=== PATIENT | female | born 1990 | race Caucasian/White ===

== ENCOUNTER → 2017-09-11 11:53 | Outpatient (CLI) | payer SELFPAY ==
[2017-09-11 14:31] LABS: Group B Strep DNA By PCR Negative (Negative); Internal Control PASS; Probe Check PASS; Specimen Processing Control PASS
== END ==
PROVIDERS: Visit Provider Obstetrics & Gynecology
DX: Z36.85 Encounter for antenatal screening for Streptococcus B (principal)
CPT/HCPCS: 87081; 87653

== ENCOUNTER 2017-09-23 11:56 | Emergency (ER) | payer SELFPAY ==
[2017-09-23 11:57] VITALS: PULSE 82; RESP 16; TEMP 36.4; O2SAT 97; BMI 34.2
[2017-09-23 12:00] VITALS: BP 121/58
--- NOTE | 2017-09-23 12:27 | VDLE_ITS ---
Reason For Study: SWELLING RIGHT GSV is normal. CFV is compressible, spontaneous, phasic, competent and demonstrates normal augmentation. FV is compressible, spontaneous, phasic, competent and demonstrates normal augmentation. POP V is compressible, spontaneous, phasic, competent and demonstrates normal augmentation. T/P Trunk is compressible. PTV is compressible. RT PerV is compressible. Procedure Exam performed portable in ED. A preliminary report was called and/or faxed to ED. Interpretation Summary Deep veins of the right lower extremity are patent and compressible segmentally. There is no evidence of right lower extremity deep vein thrombosis. Valvular competence appears intact within the proximal deep venous system on the right . The right greater saphenous vein appears patent and compressible segmentally. Ordering Physician: Leonides Miguel Performed By: Kaylan Fry, ERVINCS, RVT
--- NOTE | 2017-09-23 14:21 | NURSING ---
[id number] PAGED BY PET COUNSELOR, NO ANSWER [phone] ANSWERED PET COUNSELOR, CALL SENT TO ER
--- NOTE | 2017-09-23 14:27 | NURSING ---
VASCULAR LAB HERE
--- NOTE | 2017-09-23 14:48 | ED.VISSUMM ---
- ER Visit Summary Date of Service: 09/23/17 Chief Complaint: Right calf pain History of Present Illness: The patient is a 26 F [] complaining of right calf pain. Concern for DVT. She is 38 weeks . She reports unilateral swelling to the lower extremity. Denies chest pain or shortness of breath. No other complaints at this time. Physical Examination: [] Cardiovascular exam is regular rate and rhythm. Lungs are clear to auscultation. Abdomen is gravid soft, nontender. Lower extremities show mild asymmetric edema to the right lower extremity. Neurovascularly intact distally. Test Results: [] Doppler ultrasound is negative of the right lower extremity. Emergency Department Course and Treatment: [] Patient underwent Doppler ultrasound which was negative. She was encouraged to follow-up with her primary care physician. Treatment Plan: [] Follow-up with [facility]. Disposition: [] Discharge, stable. Impression: [] Right calf swelling This note was generated with [employer] dictation software. It may contain incorrect words, spelling, and punctuation that were not noted in review of the chart prior to signing ED Disposition - Plan for ED Patient: Chief Complaint: Lower Extremity Injury Referrals: Care Physician,No Primary [Primary Care Provider] -
--- NOTE | 2017-09-23 14:51 | ED.DCSUM_ITS ---
- ER Visit Summary Date of Service: 09/23/17 Chief Complaint: Right calf pain History of Present Illness: The patient is a 26 F [] complaining of right calf pain. Concern for DVT. She is 38 weeks . She reports unilateral swelling to the lower extremity. Denies chest pain or shortness of breath. No other complaints at this time. Physical Examination: [] Cardiovascular exam is regular rate and rhythm. Lungs are clear to auscultation. Abdomen is gravid soft, nontender. Lower extremities show mild asymmetric edema to the right lower extremity. Neurovascularly intact distally. Test Results: [] Doppler ultrasound is negative of the right lower extremity. Emergency Department Course and Treatment: [] Patient underwent Doppler ultrasound which was negative. She was encouraged to follow-up with her primary care physician. Treatment Plan: [] Follow-up with RN POSTPARTUM. Disposition: [] Discharge, stable. Impression: [] Right calf swelling This note was generated with [employer] dictation software. It may contain incorrect words, spelling, and punctuation that were not noted in review of the chart prior to signing ED Disposition - Plan for ED Patient: Chief Complaint: Lower Extremity Injury Referrals: Care Physician,No Primary [Primary Care Provider] -
--- NOTE | 2017-09-23 14:51 | ED.DEP ---
ED Disposition - Plan for ED Patient: Disposition: Home or Assisted Living Chief Complaint: Lower Extremity Injury Instructions: ED Leg Swelling Unilateral Referrals: Care Physician,No Primary [Primary Care Provider] -
== END 2017-09-23 15:13 | disposition home or self-care (01) ==
PROVIDERS: Emergency Provider Emergency Medicine
DX: O26.893 Other specified pregnancy related conditions, third trimester (principal); M79.89 Other specified soft tissue disorders; M79.661 Pain in right lower leg; Z3A.38 38 weeks gestation of pregnancy
CPT/HCPCS: 93971; 99282

== ENCOUNTER 2017-10-05 12:02 | Inpatient (IN) | payer SELFPAY ==
[2017-10-05 11:56] LABS: ROM Internal Control Test YES-OK TO RESULT pt. (Internal QC)
[2017-10-05 11:58] LABS: ROM Patient Test POSITIVE (Negative)
[2017-10-05 12:11] VITALS: BMI 35.1
[2017-10-05] MEDS: Lactated Ringers 1,000 ML 50 ML IV (12:35)
[2017-10-05 12:45] LABS: Hematocrit 37.5 % (37-47); Hemoglobin 13.1 g/dl (12.0-15.0); Mean Corp Hgb Conc 34.9 g/gl (32-36); Mean Corpuscular Hgb 32.1 pg (27.0-32.0); Mean Corpuscular Volume 91.9 fL (81-99); Mean Platelet Vol. 9.9 fl (6.2-12.0); Platelet Count 285 K/mm3 (150-450); RBC Distribution Width CV 13.5 % (11.6-14.6); RBC Distribution Width SD 45.1 fl (35.1-43.9); Red Blood Count 4.08 M/mm3 (4.2-5.4); White Blood Count 13.8 K/mm3 (4.4-11.0)
[2017-10-05 12:46] LABS: Scan Indicated on CBC? Y/N NO
[2017-10-05] MEDS: Oxytocin 30 units/NS 500 ml 30 UNITS/500 ML IV.SOLN IV (13:37)
[2017-10-05] MEDS: Nalbuphine 10 MG/ML Ampul IV (17:29)
[2017-10-05] MEDS: Oxytocin 30 units/NS 500 ml 30 UNITS/500 ML IV.SOLN 334 UNITS IV (20:53)
[2017-10-05] MEDS: Methylergonovine 0.2 MG/ML Ampul IM (21:02)
--- NOTE | 2017-10-05 21:09 | PCM.OB.VAG ---
Vaginal Delivery Maternal Presentation: Active Labor Amniotic Membrane Rupture Type: Spontaneous Amniotic Fluid Description: Lightly stained meconium Final PALAK: 10/09/17 Final PALAK Source: US <20 weeks Gestational age: 39 Weeks and 3 Days doctor who attended delivery (if requested by OB): Joey Kan stained fluid Date of Procedure: 10/05/17 Pre-Operative Diagnosis: IUP Post-Operative Diagnosis: IUP Surgery/ Procedure Performed: Spontaneous Vaginal Delivery Type of Anesthesia: None Description of Procedure: Viable male with Apgars of 8/9 with a three-vessel cord and normal placenta. Cord around the neck ?1 tight. No episiotomy. Second-degree midline laceration repaired in layers with 3-0 Rapide suture. Sponge counts okay. Delivery physician: Itz Sharp MD. Presentation: Vertex Placental Delivery Description: Spontaneous Placenta Disposition: [facility] Cord Vessel Description: 3 Vessels Cord Gases drawn per routine: ABG Cord Entanglement: Around neck x 1, tight Estimated Blood Loss: 250cc A gender: Male (1 minute): 8 (5 minute): 9 Episiotomy Description: None Laceration: Midline, Perineal Extension/lac, 2nd degree Medications given after delivery: IV Pitocin, IM Methergin, - - rectal cytotec Complications: None
--- NOTE | 2017-10-05 21:14 | PCM.DCVAG ---
Discharge Diet: No Restrictions Discharge Activity: May Shower, May Take a Tub Bath May resume sexual activity in: 4-6 weeks Additional Activity Instructions:: Nothing in the vagina for 4-6 weeks. You may return to work/school in 6 weeks. Call your doctor if you observe: Fever of 101 or Higher, Inability to urinate, Inability to have a bowel movement, Using more than one pad per hour Additional Instructions: If you experience any of the following, contact your healthcare provider. Bleeding that soaks a pad every hour for 2 hours Unrelieved incision or abdominal pain Swelling, redness, discharge or bleeding from your incision or episiotomy site Your incision begins to separate Problems urinating (including inability to urinate or burning while urinating). Visual changes Severe headache Flu-like symptoms Pain or redness in one of both of your breasts Pain, warmth, tenderness or swelling in your legs, especially the calf area Frequent nausea and vomiting Symptoms of depression or anxiety If you experience any of the following, call 911 or go to the nearest Emergency Room. Chest pain Problems breathing Seizure activity Partial or complete paralysis of a body part, slurred speech, weakness or drooping of the face, or a sudden inability to walk or hold your balance Allergies/Adverse Reactions: Allergies No Known Allergies Allergy (Verified 09/23/17 12:32) Medications to take at Discharge Vits [Prenatabs FA] 1 tablet PO DAILY 01/27/15 Aspirin [Aspir-Low] 81 mg PO 10/05/17 Please Follow Up With: Yu Uribe MD - [phone] When: Call to make an appointment with your doctor in 6 weeks. Primary Care Physician: Care Physician,No Primary [Primary Care Provider] -
--- NOTE | 2017-10-05 21:15 | DCINST_ITS ---
Discharge Diet: No Restrictions Discharge Activity: May Shower, May Take a Tub Bath May resume sexual activity in: 4-6 weeks Additional Activity Instructions:: Nothing in the vagina for 4-6 weeks. You may return to work/school in 6 weeks. Call your doctor if you observe: Fever of 101 or Higher, Inability to urinate, Inability to have a bowel movement, Using more than one pad per hour Additional Instructions: If you experience any of the following, contact your healthcare provider. * Bleeding that soaks a pad every hour for 2 hours * Unrelieved incision or abdominal pain * Swelling, redness, discharge or bleeding from your incision or episiotomy site * Your incision begins to separate * Problems urinating (including inability to urinate or burning while urinating) . * Visual changes * Severe headache * Flu-like symptoms * Pain or redness in one of both of your breasts * Pain, warmth, tenderness or swelling in your legs, especially the calf area * Frequent nausea and vomiting * Symptoms of depression or anxiety If you experience any of the following, call 911 or go to the nearest Emergency Room. * Chest pain * Problems breathing * Seizure activity * Partial or complete paralysis of a body part, slurred speech, weakness or drooping of the face, or a sudden inability to walk or hold your balance Allergies/Adverse Reactions: Allergies No Known Allergies Allergy (Verified 09/23/17 12:32) Medications to take at Discharge Vits [Prenatabs FA] 1 tablet PO DAILY 01/27/15 Aspirin [Aspir-Low] 81 mg PO 10/05/17 Please Follow Up With: Yu Uribe MD - [phone] When: Call to make an appointment with your doctor in 6 weeks. Primary Care Physician: Care Physician,No Primary [Primary Care Provider] -
[2017-10-05] MEDS: miSOPROStol 200 MCG Tablet 400 MCG RECTAL (21:17)
[2017-10-05] MEDS: Oxytocin 30 units/NS 500 ml 30 UNITS/500 ML IV.SOLN 167 UNITS IV (21:23)
[2017-10-05] MEDS: 0.9% Saline Lock 10 ML Syringe IV (22:26)
[2017-10-05 23:00] VITALS: BP 115/84; PULSE 90; RESP 18; TEMP 36.9
[2017-10-06 02:02] VITALS: BP 123/81; PULSE 96; RESP 18; TEMP 37.3
[2017-10-06 06:00] VITALS: BP 129/89; PULSE 83; RESP 16; TEMP 36.8; O2SAT 98
[2017-10-06 08:00] VITALS: BP 108/67; PULSE 81; RESP 16; TEMP 36.5
[2017-10-06] MEDS: Senna/Docusate Sodium 1 Tablet PO (08:06)
--- NOTE | 2017-10-06 08:12 | PCM.PN.OB ---
Subjective: PPD#1 Doing well. Baby nursed a lot last night, but this am very sleepy and not nursing. Minimal pain. No concerned voiced. - Physical Exam General: Alert, Oriented x3, Cooperative, No apparent distress HEENT: Atraumatic Neck: Supple Abdomen: Soft - Fundus firm NT , inferior to umbilicus Psych/Mental Status: Normal Affect Vital Signs Temp Pulse Resp BP Pulse Ox 98.3 F 83 16 129/89 H 98 10/06/17 06:00 10/06/17 06:00 10/06/17 06:00 10/06/17 06:00 10/06/17 06:00 Oxygen Delivery Method Room Air Weight: 95.8 kg Body Mass Index (BMI) 35.1 Intake and Output for Last 24 Hours 10/04/17 10/05/17 10/06/17 23:59 23:59 23:59 Intake Total 1102 / 1102 1670 / 1670 Output Total 800 / 800 800 / 800 Balance 302 / 302 870 / 870 Laboratory Tests Past 24 Hrs 10/05/17 10/05/17 10/05/17 11:45 12:35 12:35 WBC 13.8 H RBC 4.08 L Hgb 13.1 Hct 37.5 MCV 91.9 MCH 32.1 H MCHC 34.9 RDW 13.5 RDW Differential 45.1 H Plt Count 285 MPV 9.9 Vag Amniotic Fld Detect POSITIVE H Blood Type O POSITIVE Antibody Screen NEGATIVE Medical Necessity - Tobacco Use Smoking Status: Never smoker Assessment/Plan PPD#1 Stable pp. Continue care.
[2017-10-06 12:51] VITALS: BP 122/82; PULSE 98; RESP 18; TEMP 36.5
[2017-10-06 16:00] VITALS: BP 123/81; PULSE 86; RESP 16; TEMP 36.5
[2017-10-06 20:00] VITALS: BP 125/77; PULSE 80; RESP 17; TEMP 36.3; O2SAT 98
[2017-10-07 02:30] VITALS: BP 123/75; PULSE 96; RESP 17; TEMP 36.5; O2SAT 98
[2017-10-07 08:00] VITALS: BP 117/79; PULSE 85; RESP 20; TEMP 36.3
[2017-10-07] MEDS: Senna/Docusate Sodium 1 Tablet PO (09:49)
--- NOTE | 2017-10-07 09:57 | PCM.PN.OB ---
Subjective: PPD#2 vaginal delivery after SROM Doing well. Nursing. Minimal pain and minimal bleeding. No concerns voiced and ready to go home today. Objective: Up walking around the room. - Physical Exam General: Alert, Oriented x3, Cooperative, No apparent distress HEENT: Atraumatic Neck: Supple Neurological: Cranial nerves II-XII grossly intact Psych/Mental Status: Normal Affect Vital Signs Temp Pulse Resp BP Pulse Ox 97.4 F L 85 20 H 117/79 98 10/07/17 08:00 10/07/17 08:00 10/07/17 08:00 10/07/17 08:00 10/07/17 02:30 Oxygen Delivery Method Room Air Weight: 95.8 kg Body Mass Index (BMI) 35.1 Intake and Output for Last 24 Hours 10/05/17 10/06/17 10/07/17 23:59 23:59 23:59 Intake Total 1102 / 1102 1670 / 1670 Output Total 800 / 800 800 / 800 Balance 302 / 302 870 / 870 Medical Necessity - Tobacco Use Smoking Status: Never smoker Assessment/Plan PPD#2 Stable pp. Dischg home today. RTO in 6 wk for pp check (call in to make that appt)
== END 2017-10-07 11:40 | disposition home or self-care (01) | DRG 775 ==
LOC: WPOUT 12:08
PROVIDERS: Admitting Provider Obstetrics & Gynecology; Visit Provider Obstetrics & Gynecology
DX: O77.0 Labor and delivery complicated by meconium in amniotic fluid (principal); O69.1XX0 Labor and delivery complicated by cord around neck, with compression, not applicable or unspecified; O70.1 Second degree perineal laceration during delivery; Z37.0 Single live birth; Z3A.39 39 weeks gestation of pregnancy
CPT/HCPCS: 59025; 59050; 84112; 85027; 86850; 86900; 99218; J7120; A4216; G0378

== ENCOUNTER → 2019-09-02 13:11 | Outpatient (CLI) | payer SELFPAY ==
[2019-09-02 13:43] LABS: Color, Urine Yellow (Yellow); Glucose, Dipstick Normal (Normal); Ketone-Dipstick Negative (Negative); Leukocyte Esterase-Dipstick 25 /ul (Negative); Nitrite-Dipstick Negative (Negative); Occult Blood-Urine Negative /ul (Negative); Protein-Dipstick Negative (Negative); Urine Bilirubin Dipstick Negative (Negative); Urine Clarity Sl. Cloudy (Clear); Urine Urobilinogen Normal (Normal)
[2019-09-02 13:45] LABS: Absolute Lymphocyte Count 1.41 X10^3/uL (0.83-4.51); Absolute Neutrophil Count 6.9 X10^3/uL (2.0-7.7); Basophil# 0.02 X10^3/uL; Basophil% 0.2 % (0-1); Eosinophil# 0.15 X10^3/uL; Eosinophils% 1.7 % (0-5); Hematocrit 39.4 % (37-47); Hemoglobin 13.6 g/dL (12.0-15.0); Lymphocyte # 1.41 X10^3/ul (4.0); Lymphocyte % 15.6 % (19-41); Mean Corp Hgb Conc 34.5 g/dL (32-36); Mean Corpuscular Hgb 31.1 pg (27.0-32.0); Mean Platelet Vol. 9.6 fl (6.2-12.0); Monocyte% 5.5 % (0-10); NRBC Flagged by Analyzer 0 % (0-5); Neutrophil # 6.93 X10^3/uL (2.7-7.7); Neutrophil % 76.4 % (47-70); Platelet Count 274 K/mm3 (150-450); RBC Distribution Width CV 13.2 % (11.6-14.6); RBC Distribution Width SD 43.2 fl (35.1-43.9); Red Blood Count 4.38 M/mm3 (4.2-5.4); White Blood Count 9.1 K/mm3 (4.4-11.0)
[2019-09-02 14:35] LABS: Thyroid Stim Hormone (TSH) 1.58 uIU/mL (0.358-3.74)
[2019-09-02 15:16] LABS: HIV - WCH Non-Reactive (Nonreactive); Hepatitis B Surface Antigen Non-Reactive (Nonreactive); Hepatitis C Antibody Non-Reactive (Nonreactive); Rubella IgG 170.6 IU/mL
[2019-09-02 15:26] LABS: Chlamydia Trachomatis by PCR Negative (Negative)
[2019-09-02 15:27] LABS: Neisserai gonorrhoeae by PCR Negative (Negative); Probe Check PASS; Sample Adequacy Control PASS; Specimen Processing Control PASS
[2019-09-05 03:26] LABS: Prenatal RPR NONREACTIVE (NONREACTIVE)
== END ==
PROVIDERS: Visit Provider Obstetrics & Gynecology
DX: Z11.3 Encounter for screening for infections with a predominantly sexual mode of transmission (principal)
CPT/HCPCS: 36415; 81002; 84443; 85025; 86703; 86762; 86803; 87340; 87491; 87591

== ENCOUNTER → 2019-11-25 | Outpatient (CLI) | payer SELFPAY ==
[2019-11-25 15:49] LABS: Color, Urine Yellow (Yellow); Glucose, Dipstick Normal (Normal); Ketone-Dipstick Negative (Negative); Leukocyte Esterase-Dipstick 25 /ul (Negative); Nitrite-Dipstick Negative (Negative); Occult Blood-Urine 250 /ul (Negative); Protein-Dipstick 30 mg/dl (Negative); Urine Bilirubin Dipstick Negative (Negative); Urine Clarity Sl. Cloudy (Clear); Urine Urobilinogen Normal (Normal)
== END | disposition home or self-care (01) ==
LOC: LABSPEC 15:34
PROVIDERS: Referring Provider Obstetrics & Gynecology; Visit Provider Obstetrics & Gynecology
DX: Z34.83 Encounter for supervision of other normal pregnancy, third trimester (principal); N39.0 Urinary tract infection, site not specified
CPT/HCPCS: 81002; 87077; 87086; 87088; 87186

== ENCOUNTER → 2019-12-18 09:48 | Outpatient (CLI) | payer SELFPAY ==
[2019-12-18 10:37] LABS: Hematocrit 35.3 % (37-47); Mean Corpuscular Hgb 31.1 pg (27.0-32.0); Mean Corpuscular Volume 91.5 fL (81-99); Mean Platelet Vol. 9.6 fl (6.2-12.0); Platelet Count 268 K/mm3 (150-450); RBC Distribution Width SD 42.6 fl (35.1-43.9); Red Blood Count 3.86 M/mm3 (4.2-5.4); White Blood Count 10.7 K/mm3 (4.4-11.0)
[2019-12-18 10:46] LABS: Glucose Challenge Gest 1H 50g 100 mg/dL (70-140)
== END ==
PROVIDERS: Visit Provider Obstetrics & Gynecology
DX: Z34.83 Encounter for supervision of other normal pregnancy, third trimester (principal)
CPT/HCPCS: 36415; 82950; 85027

== ENCOUNTER → 2020-02-13 | Outpatient (CLI) | payer SELFPAY | END | disposition home or self-care (01) | LOC: LABSPEC 09:33 | PROVIDERS: Visit Provider Obstetrics & Gynecology | DX: Z36.85 Encounter for antenatal screening for Streptococcus B (principal) | CPT/HCPCS: 87081 ==

== ENCOUNTER 2020-02-28 14:54 | Outpatient (CLI) | payer SELFPAY ==
[2020-02-28 15:20] VITALS: BMI 34.5
[2020-02-28 15:28] VITALS: BP 120/68; PULSE 109; TEMP 37.3; O2SAT 97
--- NOTE | 2020-02-28 21:37 | OB.TRI.NOTE ---
- Problem List (1) 38 weeks gestation of Status: Acute (2) Labor, false ([place]-Kwan) Status: Acute History of Present Illness Date of Service: 02/28/20 Was patient seen by the physician?: No Reason For Visit: R/O LABOR Date of Service: 02/28/20 Final PALAK: 03/09/20 Final PALAK Source: US <20 weeks Gestational age: 38 Weeks and 4 Days History of Present Illness: Reports having membrane sweeping done yesterday in the [facility] office. Has been rgazyna at home for the last few hours every 3-5 minutes. Allergies No Known Allergies Allergy (Verified 09/23/17 12:32) Review of Systems Constitutional: Denies: Chills, Fever, Weight Change HEENT: Denies: Head Aches, Sinus Congestion, Sinus Drainage Cardiovascular: Denies: Chest Pain, Palpitations Respiratory: Denies: Cough, Shortness of breath at rest, Sputum production Gastrointestinal: Denies: Abdominal Pain, Nausea, Vomiting Genitourinary: Denies: Dysuria Musculoskeletal: Denies: Joint Pain, Joint Tenderness Skin: Denies: Rash, Wounds Neurological: Denies: Numbness, Tingling, Focal weakness Psychiatric: Denies: Anxiety, Depression, Homicidal Ideations, Suicidal Ideations Hematologic/ Lymphatic: Denies: Easy Bruising, Easy Bleeding Physical Exam Vitals: Vital Signs Temp Pulse BP Pulse Ox 99.1 F 109 H 120/68 97 02/28/20 15:28 02/28/20 15:28 02/28/20 15:28 02/28/20 15:28 General: Alert, Oriented x3, No apparent distress HEENT: Atraumatic, Normocephalic. Negative for: Thyromegaly, Lymphadenopathy Cardiovascular: Regular rate, Regular Rhythm Lungs: Clear to auscultation Abdomen: Bowel Sounds Present, Gravid Neurological: Deep Tendon Reflexes 2+/4 and Symmetrical, Neuro grossly intact CRIMINAL RECORDS TECHNICIAN: Normal external genitalia. Negative for: Vulvar lesions Estimated gestational size: Appropriate for gestational size Presentation: Cephalic Cervix Dilation (cm): 1 Station: -3 Effacement (%): 25 NST - FHR Rate Baby A Baseline: 140 Variability:: Moderate Accelerations:: 15 x 15 Decelerations:: None NST Reactive:: Yes FHR Category:: Category I Uterine Activity:: irregular Q3-8m Impression/Plan A/P: here to rule out labor with UC for three hours prior to arrival On arrival SVE 08/10/-3 which remains unchanged over 2 hours NST Category I UC irregular Q3-7m Educated on after membrane sweeping irregular contractions/Bulmaro kwan may occur Not feeling UC as often nor as painful now and would like to discharge home Early labor vs false labor reviewed and to return when UC are consistent 5-1-1
== END 2020-02-28 17:26 | disposition home or self-care (01) ==
LOC: WPOUT 15:04 → WP 15:05
PROVIDERS: Referring Provider Obstetrics & Gynecology; Visit Provider Obstetrics & Gynecology
DX: O62.9 Abnormality of forces of labor, unspecified (principal); Z3A.38 38 weeks gestation of pregnancy
CPT/HCPCS: 59025; 59050; 99218; G0378

== ENCOUNTER 2020-03-02 18:35 | Outpatient (CLI) | payer SELFPAY ==
[2020-03-02 18:46] VITALS: BP 122/81; PULSE 76; TEMP 36.5; O2SAT 98
[2020-03-02 18:48] VITALS: BMI 34.5
--- NOTE | 2020-03-02 19:29 | OB.TRI.NOTE ---
- Problem List (1) 39 weeks gestation of Status: Acute History of Present Illness Date of Service: 03/02/20 Was patient seen by the physician?: Yes Reason For Visit: RULE OUT LABOR Date of Service: 03/02/20 Final PALAK: 03/09/20 Final PALAK Source: US <20 weeks Gestational age: 39 Weeks and 0 Days History of Present Illness: Called into OB office with complaints of decreased FM with irregular cramping. Allergies No Known Allergies Allergy (Verified 09/23/17 12:32) Review of Systems Constitutional: Denies: Chills, Fever, Weight Change HEENT: Denies: Head Aches, Sinus Congestion, Sinus Drainage Cardiovascular: Denies: Chest Pain, Palpitations Respiratory: Denies: Cough, Shortness of breath at rest, Sputum production Gastrointestinal: Denies: Abdominal Pain, Nausea, Vomiting Genitourinary: Denies: Dysuria Musculoskeletal: Denies: Joint Pain, Joint Tenderness Skin: Denies: Rash, Wounds Neurological: Denies: Numbness, Tingling, Focal weakness Psychiatric: Denies: Anxiety, Depression, Homicidal Ideations, Suicidal Ideations Hematologic/ Lymphatic: Denies: Easy Bruising, Easy Bleeding Physical Exam Vitals: Vital Signs Temp Pulse BP Pulse Ox 97.7 F L 76 122/81 H 98 03/02/20 18:46 03/02/20 18:46 03/02/20 18:46 03/02/20 18:46 General: Alert, Oriented x3, No apparent distress HEENT: Atraumatic, Normocephalic. 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 Negative for: Vulvar lesions Estimated gestational size: Appropriate for gestational size Presentation: Cephalic Cervix Dilation (cm): 2 Station: -2 Effacement (%): 70 NST - FHR Rate Baby A Baseline: 140 Variability:: Moderate Accelerations:: 15 x 15 Decelerations:: None NST Reactive:: Yes FHR Category:: Category I Uterine Activity:: 3-5 Impression/Plan A/P: at 39 weeks gestation here to rule out labor Reports +FM now NST Category I reactive UC 3-5m SVE 2/70/-2 Will recheck SVE in 2 hours
== END 2020-03-02 21:25 | disposition home or self-care (01) ==
LOC: WPOUT 18:39 → WP 18:40
PROVIDERS: Visit Provider Obstetrics & Gynecology
DX: O36.8130 Decreased fetal movements, third trimester, not applicable or unspecified (principal); Z3A.39 39 weeks gestation of pregnancy
CPT/HCPCS: 59025; 59050; 99218; G0378

== ENCOUNTER 2020-03-03 02:58 | Inpatient (IN) | payer SELFPAY ==
[2020-03-02 18:48] VITALS: BMI 34.5
[2020-03-03] VITALS (29 sets, daily range): BP systolic 117–140; BP diastolic 72–101; PULSE 59–200; RESP 16; TEMP 36.5–37.2; O2SAT 83–99; BMI 34.4
[2020-03-03] MEDS: Lactated Ringers 1,000 ML 50 ML IV (03:45)
[2020-03-03] MEDS: 0.9% Saline Lock 10 ML Syringe IV ×3 (04:02→13:59)
--- NOTE | 2020-03-03 04:03 | PCM.HP.OB ---
<DebArianna - Last Filed: 03/03/20 17:56> - Problem List (1) 39 weeks gestation of Status: Acute History Date of Admission: 03/03/20 Final PALAK: 03/09/20 Final PALAK Source: US <20 weeks Gestational age: 39 Weeks and 1 Days History of this : This is a 29 year-old, G [3], P [2], at 39 weeks gestational age. Allergies No Known Allergies Allergy (Verified 03/03/20 03:27) Home Medications: Home Medications Vits [Prenatabs FA] 1 tablet PO DAILY 01/27/15 Aspirin 81 mg PO DAILY 03/02/20 Oxycodone [Oxyir] 5 mg PO Q6H PRN PRN 7 Days #12 tab 03/04/20 Smoking Status: Never smoker Number of Fetus(es): 1 NST - FHR Rate Baby A Baseline: 130 Variability:: Moderate Accelerations:: 15 x 15 Decelerations:: None NST Reactive:: Yes FHR Category:: Category I Uterine Activity:: 2-5m History Past Pregnancies: Past Pregnancies January 28 GA 39wk [id number] vaginal with an epidural October 05 GA 39wk [id number] vaginal with local Labs: Mom's Labs & Results 03/03/20 03/03/20 03:45 03:45 WBC 8.5 RBC 4.25 Hgb 13.2 Hct 38.5 MCV 90.6 MCH 31.1 MCHC 34.3 RDW Std Deviation 43.5 RDW Coeff of Ca 13.2 Plt Count 302 MPV 10.5 Immature Gran % (Auto) 0.500 Neut % (Auto) 72.3 H Lymph % (Auto) 18.9 L [place] % (Auto) 6.8 Eos % (Auto) 1.1 Baso % (Auto) 0.4 Absolute Neuts (auto) 6.1 Absolute Lymphs (auto) 1.60 Nucleated RBC % 0 Blood Type O POSITIVE Antibody Screen NEGATIVE Course Did the patient receive Yes care? Labs Blood Type: O RH: POSITIVE RPR/VDRL/Syphilis Nonreactive Rubella status Immune HbSAg Negative Date Done: 09/02/19 Chlamydia Negative Gonorrhea Negative HIV/AIDS Non-Reactive Group B Strep: Negative Current Obstetrical History Gestational Diabetes No Incompetent Cervix No Infertility No IUGR No Macrosomia No Hypertension/Pre-eclampsia No Placenta Previa/Abruption No PTL/PROM No Uterine anomaly No Oligohydramnios No Polyhydramnios No Multiple gestation No Past Medical History Asthma No Diabetes No Hypertension No Heart disease No Mitral valve prolapse No Neurologic/Seizure disorder/ No Migraines Kidney disease No Liver disease No Varicosities No Clotting disorders/Hx of DVT No Thyroid Dysfunction No Other medical diseases No Psychiatric disorders No Major trauma No Abnormal PAP smear No Sleep apnea No Mammogram in the last 2 years No Social History Marital Status: Alleged father [place] Hx Smoking No Smoking Status Never smoker Expected Infant Delivery Method: Spontaneous Vaginal Number of Visits: 10 Review of Systems Constitutional: Denies: Chills, Fever, Weight Change HEENT: Denies: Head Aches, Sinus Congestion, Sinus Drainage Cardiovascular: Denies: Chest Pain, Palpitations Respiratory: Denies: Cough, Shortness of breath at rest, Sputum production Gastrointestinal: Denies: Abdominal Pain, Nausea, Vomiting Genitourinary: Denies: Dysuria Musculoskeletal: Denies: Joint Pain, Joint Tenderness Skin: Denies: Rash, Wounds Neurological: Denies: Numbness, Tingling, Focal weakness Psychiatric: Denies: Anxiety, Depression, Homicidal Ideations, Suicidal Ideations Hematologic/ Lymphatic: Denies: Easy Bruising, Easy Bleeding Physical Exam Vitals: Vital Signs Temp Pulse BP Pulse Ox 98.6 F 77 130/89 H 97 03/03/20 05:42 03/03/20 05:57 03/03/20 05:57 03/03/20 05:42 General: Alert, Oriented x3, No apparent distress HEENT: Atraumatic, Normocephalic. 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 Negative for: Vulvar lesions Estimated gestational size: Appropriate for gestational size Presentation: Cephalic Cervix Dilation (cm): 4 Station: -3 Effacement (%): 70 Assessment/Plan All Active Problems 38 weeks gestation of (Acute) Labor, false ([place]) (Acute) 39 weeks gestation of (Acute) A/P: This is a 29 year-old, G [3], P [2], at 39 weeks gestational age. SROM 2330, grossly ruptured with clear amniotic fluid SVE /-3 Admit in active labor Wishes to avoid epidural Expect <Gladys Matute - Last Filed: 03/05/20 15:28> History History of this : This is a 29 year-old, G [], P [], at 39 weeks gestational age. Allergies No Known Allergies Allergy (Verified 03/03/20 03:27) History Past Pregnancies: Past Pregnancies Delivery Date Name GA/ Weeks Outcome Route Wt Sex Labor Length Anesthesia Delivery Location Provider FOB Physical Exam Vitals: Vital Signs Temp Pulse Resp BP Pulse Ox 97.5 F L 83 16 123/84 H 97 03/04/20 12:52 03/04/20 12:52 03/04/20 12:52 03/04/20 12:52 03/03/20 15:52 Assessment/Plan 29 yo at 39/1w, PALAK 03/09/20, admitted with spontaneous rupture of membranes in labor. Planned expectant management at admission, augment with pitocin as needed.
[2020-03-03 04:18] LABS: Absolute Neutrophil Count 6.1 X10^3/uL (2.0-7.7); Basophil# 0.03 X10^3/uL; Basophil% 0.4 % (0-1); Eosinophil# 0.09 X10^3/uL; Eosinophils% 1.1 % (0-5); Hematocrit 38.5 % (37-47); Hemoglobin 13.2 g/dL (12.0-15.0); Lymphocyte % 18.9 % (19-41); Mean Corp Hgb Conc 34.3 g/dL (32-36); Mean Corpuscular Hgb 31.1 pg (27.0-32.0); Mean Corpuscular Volume 90.6 fL (81-99); Mean Platelet Vol. 10.5 fl (6.2-12.0); Monocyte# 0.58 X10^3/uL; Monocyte% 6.8 % (0-10); NRBC Flagged by Analyzer 0 % (0-5); Neutrophil # 6.13 X10^3/uL (2.7-7.7); Neutrophil % 72.3 % (47-70); Platelet Count 302 K/mm3 (150-450); RBC Distribution Width CV 13.2 % (11.6-14.6); RBC Distribution Width SD 43.5 fl (35.1-43.9); Red Blood Count 4.25 M/mm3 (4.2-5.4); White Blood Count 8.5 K/mm3 (4.4-11.0)
--- NOTE | 2020-03-03 07:04 | PN.OBGYN_ITS ---
Subjective: Feeling okay with pain 3/10 with contractions. Objective: VSS. FHR baseline 140, +accels, -decels, moderate variability, irregular UC. SVE /-2 - Physical Exam Vitals/I&O's: Vital Signs Temp Pulse BP Pulse Ox 98.6 F 77 130/89 H 97 03/03/20 05:42 03/03/20 05:57 03/03/20 05:57 03/03/20 05:42 Weight: 93.894 kg Body Mass Index (BMI) 34.4 Intake and Output for Last 24 Hours 03/01/20 03/02/20 03/03/20 23:59 23:59 23:59 Intake Total . Balance General: Alert, Oriented x3, Cooperative HEENT: Atraumatic, PERRLA, EOMI, Normocephalic Neck: Supple, No JVD, Negative Carotid Bruits Lungs: Clear to auscultation, Normal air movement Cardiovascular: Regular rate, No murmurs Abdomen: Bowel Sounds Present, Soft, Non Tender Extremities: No edema, Capillary Refill Less than 3 Seconds Skin: No rashes, No breakdown Musculoskeletal: No Tenderness to Palpation of Joints or Extremities Neurological: Cranial nerves II-XII grossly intact Psych/Mental Status: Normal Affect, Appropriate Laboratory Results 03/03/20 03:45: WBC 8.5, RBC 4.25, Hgb 13.2, Hct 38.5, MCV 90.6, MCH 31.1, MCHC 34.3, RDW Std Deviation 43.5, RDW Coeff of Ca 13.2, Plt Count 302, MPV 10.5, Immature Gran % (Auto) 0.500, Neut % (Auto) 72.3 H, Lymph % (Auto) 18.9 L, [place] % (Auto) 6.8, Eos % (Auto) 1.1, Baso % (Auto) 0.4, Absolute Neuts (auto) 6.1, Absolute Lymphs (auto) 1.60, Nucleated RBC % 0 03/03/20 03:45: Blood Type O POSITIVE, Antibody Screen NEGATIVE Current Medications Acetaminophen (Tylenol) 325 - 650 mg PO Q4H PRN PRN PRN Reason: Pain Score 1-3/10 Al Hydroxide/Mg Hydroxide (Mylanta Ii) 15 - 30 ml PO Q4H PRN PRN PRN Reason: INDIGESTION Citric Acid/Sodium Citrate (Bicitra) 30 ml PO X1 PRN PRN Reason: Section Fentanyl Citrate (Sublimaze (100mcg Ampule)) 25 - 50 mcg IV Q2H PRN PRN PRN Reason: Pain Score 4-10/10 Lactated Ringer's () 500 mls @ 999 mls/hr IV .Q31M PRN PRN Reason: Epidural Lactated Ringer's () 500 mls @ 999 mls/hr IV .Q31M PRN PRN Reason: Corrective Measures Lactated Ringer's () 1,000 mls @ 50 mls/hr IV .Q20H ALONSO Last Infusion: 03/03/20 04:02 Dose: 0 mls/hr Documented by: Ondansetron HCl (Zofran) 4 mg IV Q4H PRN PRN PRN Reason: NAUSEA Prochlorperazine Edisylate (Compazine Iv) 10 mg IV Q6H PRN PRN PRN Reason: NAUSEA Sodium Chloride () 10 - 40 ml IV X1 PRN PRN Reason: SALINE FLUSH Last Admin: 03/03/20 04:02 Dose: 10 ml Documented by: Medical Necessity - Tobacco Use Smoking Status: Never smoker Assessment/Plan All Active Problems 38 weeks gestation of (Acute) Labor, false ([place]-Kwan) (Acute) 39 weeks gestation of (Acute) A/P: SVE 4/70/-2 NST Category I Will start low dose Pitocin 2u/1H increase Expect
[2020-03-03] MEDS: Oxytocin 30 units/NS 500 ml 30 UNITS/500 ML IV.SOLN IV (08:35)
[2020-03-03] MEDS: fentaNYL 100 MCG/2 ML Ampul IV (10:25)
[2020-03-03] MEDS: Oxytocin 30 units/NS 500 ml 30 UNITS/500 ML IV.SOLN 334 UNITS IV (11:43)
--- NOTE | 2020-03-03 11:52 | DCINST_ITS ---
<Arianna Boyd - Last Filed: 03/03/20 11:52> Discharge Diet: No Restrictions Discharge Activity: Return to Normal Activity, May not drive while taking narcotic pain medications., May Shower May resume sexual activity in: 4-6 weeks Additional Activity Instructions:: Nothing in the vagina for 4-6 weeks. You may return to work/school in 6 weeks. Call your doctor if your incision/area has: Continuous Slow Oozing, Sudden Increased Bleeding, Increased Pain/ Swelling, Increased Redness, Foul Smelling Discharge Additional Instructions: If you experience any of the following, contact your healthcare provider. * Bleeding that soaks a pad every hour for 2 hours * Fever 100.4 or higher * Unrelieved incision or abdominal pain * Swelling, redness, discharge or bleeding from your incision or episiotomy site * Your incision begins to separate * Problems urinating (including inability to urinate or burning while urinating). * Visual changes * Severe headache * Flu-like symptoms * Pain or redness in one of both of your breasts * Pain, warmth, tenderness or swelling in your legs, especially the calf area * Frequent nausea and vomiting * Symptoms of depression or anxiety If you experience any of the following, call 911 or go to the nearest Emergency Room. * Chest pain * Problems breathing * Seizure activity * Partial or complete paralysis of a body part, slurred speech, weakness or drooping of the face, or a sudden inability to walk or hold your balance Allergies/Adverse Reactions: Allergies No Known Allergies Allergy (Verified 03/03/20 03:27) Medications to take at Discharge Vits [Prenatabs FA] 1 tablet PO DAILY 01/27/15 Aspirin 81 mg PO DAILY 03/02/20 Oxycodone [Oxyir] 5 mg PO Q6H PRN PRN 7 Days #12 tablet 03/04/20 The following prescriptions were given: Oxycodone [Oxyir] 5 mg PO Q6H PRN PRN 7 Days #12 tablet PRN Reason: Pain Score 6-10/10 Transmission Status: Received by [id number] Please Follow Up With: Arianna Boyd CNM When: Call to make an appointment with your CNM in 2 weeks for a telehealth appointment and a routine 6 week appointment. Primary Care Physician: Care Physician,No Primary [Primary Care Provider] - Test Results: Test results from this visit will be discussed in further detail at your follow- up appointment, if applicable. <Alfonso Matute - Last Filed: 03/04/20 08:14> Additional Instructions: If you experience any of the following, contact your healthcare provider. * Bleeding that soaks a pad every hour for 2 hours * Fever 100.4 or higher * Unrelieved incision or abdominal pain * Swelling, redness, discharge or bleeding from your incision or episiotomy site * Your incision begins to separate * Problems urinating (including inability to urinate or burning while urinating). * Visual changes * Severe headache * Flu-like symptoms * Pain or redness in one of both of your breasts * Pain, warmth, tenderness or swelling in your legs, especially the calf area * Frequent nausea and vomiting * Symptoms of depression or anxiety If you experience any of the following, call 911 or go to the nearest Emergency Room. * Chest pain * Problems breathing * Seizure activity * Partial or complete paralysis of a body part, slurred speech, weakness or drooping of the face, or a sudden inability to walk or hold your balance Test Results: Test results from this visit will be discussed in further detail at your follow- up appointment, if applicable.
--- NOTE | 2020-03-03 11:52 | PCM.OPRPT ---
Problem List (1) 39 weeks gestation of Status: Acute Vaginal Delivery Maternal Presentation: Active Labor Amniotic Membrane Rupture Type: Spontaneous at home Rupture of Membrane time: 2330 Amniotic Fluid Description: Clear Final PALAK: 03/09/20 Gestational age: 39 Weeks and 1 Days Pre-Operative Diagnosis: Labor Post-Operative Diagnosis: S/P Surgery/ Procedure Performed: Spontaneous Vaginal Delivery Type of Anesthesia: Local with 1% lidocaine Description of Procedure: Patient was FD at +3 station with spontaneous urge to push. She pushed three times to deliver head in OA to KAVITA, loose nuchal x1 reduced at perineum, followed by delivery of body. The female infant was placed on the maternal abdomen and further attended to by nursery personnel. The cord was doubly clamped and cut by FOB under CNM supervision at approximately 5 minutes of life. First degree perineal laceration repaired with a 3.0 vicryl under 1% Lidocaine local. With gentle traction the placenta delivered. IV Pitocin started per protocol. On inspection placenta appears to have a three vessel cord. Apgars 8/9. EBL 100. Sponge and needle counts correct x 2. Attending MD: Dr. Breonna Matute Presentation: Vertex, DALE Placental Delivery Description: Spontaneous Placenta Disposition: [facility] Cord Vessel Description: 3 Vessels Cord Entanglement: Around neck x 1, loose Estimated Blood Loss: 100 Infant A gender: Female (1 minute): 8 (5 minute): 9 Episiotomy Description: None Laceration: Perineal Extension/lac, 1st degree Medications given after delivery: IV Pitocin
[2020-03-03] MEDS: Ibuprofen 600 MG Tablet PO (13:59)
[2020-03-04] VITALS (7 sets, daily range): BP systolic 116–143; BP diastolic 76–90; PULSE 76–83; RESP 16; TEMP 36.4–36.6
[2020-03-04] MEDS: Ibuprofen 600 MG Tablet PO ×3 (00:22→12:39)
--- NOTE | 2020-03-04 08:14 | PCM.PN.OB ---
Subjective: Objective: No overnight complaints, pain well controlled. Denies CP, SOB, N/v - Physical Exam Vitals/I&O's: Vital Signs Temp Pulse Resp BP Pulse Ox 97.6 F L 77 16 116/76 97 03/04/20 04:50 03/04/20 04:57 03/04/20 04:50 03/04/20 04:57 03/03/20 15:52 Oxygen Delivery Method Room Air Weight: 207 lb Body Mass Index (BMI) 34.4 Intake and Output for Last 24 Hours 03/02/20 03/03/20 03/04/20 23:59 23:59 23:59 Intake Total 646.48 / 646.48 Output Total 1100 / 1100 Balance -453.52 / -453.52 General: Alert, Oriented x3 HEENT: Atraumatic, PERRLA, Normocephalic Oral: Moist Mucosa Neck: Supple Abdomen: Bowel Sounds Present, Soft, Non Tender, Gravid Extremities: No edema Skin: No rashes Psych/Mental Status: Normal Affect, Appropriate, Alert and oriented to time, place, person, mood and affect Current Medications Acetaminophen (Tylenol) 1,000 mg PO Q8H PRN PRN PRN Reason: Pain Score 1-3/10 Bisacodyl (Dulcolax) 10 mg RECTAL UD PRN PRN Reason: If no BM Hydrocortisone (Hytone) 1 applic TOPICAL TID PRN PRN; Protocol PRN Reason: Discomfort Ibuprofen (Motrin) 600 mg PO Q6 ALONSO Last Admin: 03/04/20 06:02 Dose: 600 mg Documented by: Methylergonovine Maleate (Methergine) 0.2 mg IM X1 PRN PRN Reason: Excess bleeding/uterine atony Ondansetron HCl (Zofran) 4 mg IV Q4H PRN PRN PRN Reason: Nausea Oxycodone HCl (Oxyir) 5 - 10 mg PO Q4H PRN PRN PRN Reason: Pain Score 4-10/10 Senna/Docusate Sodium (Senokot-S, Sulma-Colace) 1 - 2 tablet PO DAILY PRN PRN PRN Reason: Constipation Simethicone (Mylicon) 80 mg PO PCHS PRN PRN Reason: Indigestion/Stomach pain Sodium Chloride () 5 - 15 ml IV UD PRN PRN Reason: SALINE FLUSH Last Admin: 03/03/20 13:59 Dose: 10 ml Documented by: Throat Lozenges (Dermoplast (Sp)) 1 applic TOPICAL 4X/DAY PRN PRN; Protocol PRN Reason: Pain/Inflammation Last Admin: 03/03/20 13:59 Dose: 1 applic Documented by: Medical Necessity - Tobacco Use Smoking Status: Never smoker Assessment/Plan All Active Problems 38 weeks gestation of (Acute) Labor, false ([place]) (Acute) 39 weeks gestation of (Acute) PPD#1 s/p . Pain well controlled. okay to d/c home
== END 2020-03-04 13:05 | disposition home or self-care (01) | DRG 807 ==
LOC: WPOUT 02:59 → WP 03:00 → WPOUT 03:13 → WP 03:13
PROVIDERS: Admitting Provider Obstetrics & Gynecology; Referring Provider Obstetrics & Gynecology; Visit Provider Obstetrics & Gynecology
DX: O69.81X0 Labor and delivery complicated by cord around neck, without compression, not applicable or unspecified (principal); O70.0 First degree perineal laceration during delivery; Z79.82 Long term (current) use of aspirin; Z3A.39 39 weeks gestation of pregnancy; Z37.0 Single live birth
CPT/HCPCS: 59025; 59050; 85025; 86850; 86900; 86901; 99218; J7120; A4216; G0378

== ENCOUNTER → 2020-04-21 | Outpatient (CLI) | payer SELFPAY ==
[2020-03-03 03:35] VITALS: BMI 34.4
[2020-04-24 16:55] LABS: HPV Reflexed? YES, CHARGE PATIENT
== END | disposition home or self-care (01) ==
LOC: LABSPEC 10:23
PROVIDERS: Visit Provider Obstetrics & Gynecology
DX: Z12.4 Encounter for screening for malignant neoplasm of cervix (principal)
CPT/HCPCS: 87624; 88175; G0145

== ENCOUNTER 2020-08-05 21:23 | Emergency (ER) | payer OTHER, SELFPAY ==
[2020-03-03 03:35] VITALS: BMI 34.4
[2020-08-05 21:24] VITALS: BP 130/78; PULSE 90; RESP 17; TEMP 36.5; O2SAT 98; BMI 34.0
--- NOTE | 2020-08-05 21:25 | ED.RN ---
NO OLD EKGS IN MUSE
--- NOTE | 2020-08-05 22:11 | CT_ITS ---
STUDY: CT ABDOMEN AND PELVIS WITHOUT CONTRAST REASON FOR EXAM: Female, 29 years old. ABDOMINAL PAIN UMBILICAL REGION, CHEST PAIN, GIVEN 1 NITRO RADIATION DOSAGE (If Supplied By Facility): CTDIvol = ( 14.35 ) mGy, DLP = ( 699.25 ) mGycm TECHNIQUE: Transaxial images were obtained from the dome of the diaphragm to the symphysis pubis without oral contrast, and without intravenous contrast. Sagittal and coronal images were reconstructed. Individualized dose optimization techniques were used for this CT. COMPARISON: None. FINDINGS: The visualized lung bases are unremarkable. The visualized portions of the heart are within normal limits. Normal liver. Cholelithiasis. No significant dilatation of the extrahepatic biliary system. Normal spleen. Normal pancreas. Normal bilateral adrenal glands. Mild hydronephrosis of the right kidney with right hydroureter. No obstructive stone is noted. Normal left kidney. Normal visualized stomach. Normal small intestine. Normal colon. The appendix is visualized and appears normal. Normal abdominal aorta. Normal inferior vena cava. Normal retroperitoneum. Normal urinary bladder. 4.6 cm fatty ventral hernia. Normal osseous structures. CT/Abdomen/Pelvis without Cont IMPRESSION: Cholelithiasis. Right hydronephrosis and hydroureter. No obstructing stone is noted. Fatty ventral hernia. Electronically Signed: Ketan Mcmahon DO at 22:45 EST Tel [phone], Service support ,
--- NOTE | 2020-08-05 22:11 | EKG12_ITS ---
Test Reason : CP Blood Pressure : / mmHG Vent. Rate : 084 BPM Atrial Rate : 084 BPM P-R Int : 168 ms QRS Dur : 084 ms QT Int : 400 ms P-R-T Axes : 022 032 025 degrees QTc Int : 472 ms Normal sinus rhythm Normal ECG Confirmed by SOHA WILSON, MARY ([id number]), copy editor BRUNA ANTHONY ([id number]) on 08/06/2020 2:16:25 PM Referred By: Confirmed By:MARY HOYOS MD
[2020-08-05] MEDS: 0.9% Normal Saline 1,000 ML 150 ML IV (22:15)
[2020-08-05 22:21] LABS: Absolute Lymphocyte Count 1.91 X10^3/uL (0.83-4.51); Absolute Neutrophil Count 6.3 X10^3/uL (2.0-7.7); Basophil# 0.05 X10^3/uL; Basophil% 0.5 % (0-1); Eosinophil# 0.22 X10^3/uL; Eosinophils% 2.4 % (0-5); Hematocrit 37.9 % (37-47); Hemoglobin 13.1 g/dL (12.0-15.0); Lymphocyte # 1.91 X10^3/ul (4.0); Lymphocyte % 20.8 % (19-41); Mean Corp Hgb Conc 34.6 g/dL (32-36); Mean Corpuscular Hgb 30.5 pg (27.0-32.0); Mean Corpuscular Volume 88.3 fL (81-99); Mean Platelet Vol. 9.6 fl (6.2-12.0); Monocyte# 0.63 X10^3/uL; Monocyte% 6.9 % (0-10); NRBC Flagged by Analyzer 0 % (0-5); Neutrophil # 6.34 X10^3/uL (2.7-7.7); Neutrophil % 69.1 % (47-70); Platelet Count 308 K/mm3 (150-450); RBC Distribution Width CV 12.5 % (11.6-14.6); RBC Distribution Width SD 40.7 fl (35.1-43.9); Red Blood Count 4.29 M/mm3 (4.2-5.4); White Blood Count 9.2 K/mm3 (4.4-11.0)
--- NOTE | 2020-08-05 22:23 | RAD_ITS ---
STUDY: X-RAY CHEST REASON FOR EXAM: Female, 29 years old. CHEST PAIN TECHNIQUE: Frontal view COMPARISON: None. FINDINGS: The lungs are clear and expanded. There is no demonstrated pleural abnormality. Normal size heart. Normal mediastinum and saul. Normal visualized pulmonary arteries. Normal visualized aortic arch and descending thoracic aorta. Normal visualized thoracic spine. Normal visualized ribs, clavicles, and shoulders. There is no demonstrated abnormality of the visualized soft tissue structures of the upper abdomen. RAD/Chest 1 View (Portable) IMPRESSION: Normal x-ray examination of the chest. Electronically Signed: Ketan Mcmahon DO at 23:19 EST Tel [phone], Service support ,
[2020-08-05 22:24] VITALS: BP 125/77; PULSE 89; RESP 18; O2SAT 97
[2020-08-05 22:24] LABS: Bacteria 0 SEEN /hpf (None Seen); Mucous, Urine 0 SEEN /hpf (<or=2+)
[2020-08-05 22:26] LABS: Color, Urine Yellow (Yellow); Glucose, Dipstick Normal (Normal); Ketone-Dipstick Negative (Negative); Leukocyte Esterase-Dipstick 25 /ul (Negative); Nitrite-Dipstick Negative (Negative); Occult Blood-Urine 250 /ul (Negative); Protein-Dipstick Negative (Negative); Urine Bilirubin Dipstick Negative (Negative); Urine Clarity Clear (Clear); Urine Urobilinogen Normal (Normal); Urine pH 6.5 (5.0 - 8.0)
[2020-08-05 22:30] LABS: D-Dimer Quantitative (DVT/PE) 0.34 FEU/ug/m (0.27-0.49)
[2020-08-05 22:33] LABS: Red Blood Cells-Urine 25-50 SEEN /hpf (0-5); White Blood Cells 0-5 SEEN /hpf (0-5)
[2020-08-05 22:34] LABS: Squamous Epithelial Cells - UA 0-5 SEEN /hpf (5-10)
[2020-08-05 22:38] LABS: ALB/GLOB Ratio 1.1 RATIO (0.9-2.4); AST(SGOT) 30 U/L (15-37); Alanine Aminotransfer ALT/SGPT 20 U/L (13-56); Albumin, Serum 3.7 g/dL (3.2-5.0); Alkaline Phosphatase 83 U/L (45-117); Anion Gap 6 (5-15); BUN 16 mg/dL (7-18); BUN/Creat Ratio 20.3 RATIO (10-20); Calcium,Total 8.4 mg/dL (8.5-10.1); Chloride 109 mmol/L (98-107); Creatinine, Serum 0.79 mg/dL (0.55-1.02); EST Glomerular Filtration Rate 90 mL/min (>60); Est Glom Filt Rate - Afr Amer 109 mL/min (>60); Estimated Creatinine Clearance 92.85 ml/min; Globulin 3.4 g/dL (2.2-4.2); Glucose 122 mg/dL (74-106); Lipase 204 U/L (73-393); Potassium 3.1 mmol/L (3.5-5.1); Protein, Total 7.1 g/dL (6.4-8.2); Sodium Level 139 mmol/L (136-145)
[2020-08-06] VITALS: BP 119/72; PULSE 83; RESP 18; O2SAT 98
--- NOTE | 2020-08-06 00:29 | ED.VISSUMM ---
- ER Visit Summary Date of Service: 08/06/20 Chief Complaint: [Pain and abdominal pain] History of Present Illness: The patient is a 29 F [presents to the emergency department with sudden onset of pain that started in her mid abdomen that radiated up into her chest. Patient states the pain started suddenly around 8 PM while she was bathing her baby. Patient states that now the pain is mostly resolved and rates it about a 1 out of 10. She has had similar symptoms in the past. Patient states that she has a small hernia above her bellybutton and she was following up with her primary care physician because she needed a referral to see a surgeon.] Patient denies fever or cough. She is not had any Covid exposures. Patient is currently on her menstrual period. Patient denies urinary symptoms. Patient has not had any prior abdominal surgeries. Physical Examination: [HEENT-PERRLA, EOMI. Cranial nerves II through XII grossly intact. TMs clear. Mucous membranes moist. No adenopathy. Cardiovascular-regular rate and rhythm without murmur or ectopy Lungs-clear to auscultation, chest wall stable without crepitus or subcu emphysema Abdomen-normoactive bowel sounds, soft. Patient has some mild tenderness just cephalad to the umbilicus. I do not appreciate any obvious hernias. There is no rebound, rigidity, or peritoneal signs. Extremities-intact ?4, normal range of motion, normal pulses, atraumatic] Test Results: [EKG obtained arrival shows sinus rhythm with a rate of 84 bpm with no acute ST segment changes. CBC with differential showed a white count of 9.2, hemoglobin 13, hematocrit 38, placed 308. Chemistries unremarkable. Urinalysis was significant for 25-50 RBCs but no signs of infection. Troponin is less than 0.015. D-dimer was 0.34. CT scan of the abdomen pelvis showed a 4.6 cm fatty ventral hernia and hydroureter and hydronephrosis of the right kidney without evidence of kidney stone.] Chest x-ray 1 view obtained interpreted by myself as no acute disease process and radiology in agreement. Emergency Department Course and Treatment: [IV line established on arrival.] Treatment Plan: [Patient will be referred to general surgery to follow-up regarding the fatty hernia.] I do not feel patients have an acute coronary syndrome. Disposition: [Discharged home in stable condition] Impression: [Abdominal pain Ventral hernia Chest pain-etiology uncertain] This note was generated with [employer] dictation software. It may contain incorrect words, spelling, and punctuation that were not noted in review of the chart prior to signing ED Disposition - Plan for ED Patient: Referrals: Soumya Delgado MD [Primary Care Provider] -
--- NOTE | 2020-08-06 00:35 | ED.DEP ---
ED Disposition - Plan for ED Patient: Instructions: ED Chest Pain, Uncertain Cause, ED Hernia (Adult) Referrals: Soumya Delgado MD [Primary Care Provider] - Arnulfo Hearn MD [STAFF PHYSICIAN] - 3-5 Days
[2020-08-06 01:01] VITALS: BP 122/68; PULSE 77; RESP 17; O2SAT 97
== END 2020-08-06 01:02 | disposition home or self-care (01) ==
LOC: ED 22:43
PROVIDERS: Emergency Provider Emergency Medicine; PCP Family Medicine
DX: R10.9 Unspecified abdominal pain (principal); K43.9 Ventral hernia without obstruction or gangrene; R07.9 Chest pain, unspecified; N13.30 Unspecified hydronephrosis
CPT/HCPCS: 36415; 71045; 74176; 80053; 81001; 83690; 84484; 85025; 85379; 93005; 96360; 96361; 99285

== ENCOUNTER 2020-08-12 05:30 | Day surgery (SDC) | payer SELFPAY ==
[2020-08-07 10:19] VITALS: BMI 32.8
[2020-08-12] VITALS (8 sets, daily range): BP systolic 109–121; BP diastolic 61–82; PULSE 62–82; RESP 16; TEMP 36.3–37.5; O2SAT 97–100; BMI 33.5
--- NOTE | 2020-08-12 | HERN_PTH ---
PATIENT: YISEL BLAKE LOC: [facility] – [place] U#:[id number] AGE/SX: 29/F ROOM: RE08/12/[address]: Dr. Arnulfo Hearn MD : 1990 BED: DIS: 08/12/2020 SPEC #: [id number] RECD: 08/12/20 09:23 STATUS: SEVERIANO SILVA #: [id number] ELIJAH: 08/12/20 00:[address]: Arnulfo Hearn DEPT: SURGICAL PATHOLOGY RECD BY: Sundar Salgado ENTERED: 08/12/20 09:55 SP TYPE: Hernia OTHR DR: Dr. Soumya Delgado MD Tissues: HERNIA Procedures: Surgery Specimen Level II HEADER OPERATION: Ventral hernia repair with mesh PRE-OP DIAGNOSIS: Ventral incisional hernia TISSUE SUBMITTED: Hernia sac and contents MICROSCOPIC DIAGNOSIS Hernia sac, herniorrhaphy: Fragments of mature fibrofatty tissue and fibrous tissue consistent with hernia sac and contents. AM:maximiliano 08/13/2020 MICROSCOPIC DESCRIPTION Slides are reviewed. GROSS DESCRIPTION Received in fixative is one container labeled with the patient's name and designated hernia sac and contents. The specimen consists of an irregular fragment of yellow fatty tissue measuring 8.7 x 5 x 1.5 cm. Serial sections reveal homogenous yellow cut surfaces without areas of cyst formation, necrosis or hemorrhage. Auto Service Dispatcher sections are submitted in one cassette. / AM:maximiliano 08/12/20 TC:5 CPT: 73166
--- NOTE | 2020-08-12 05:37 | PCM.HP.BLA ---
Problem List (1) Ventral incisional hernia without obstruction or gangrene Status: Acute History and Physical Date of Admission: 08/12/20 Intake Visit Reasons: VENTRAL HERNIA ER F/U [facility] 08/05 Allergies No Known Allergies Allergy (Verified 08/07/20 10:20) Medications NK 08/07/20 [History Confirmed 08/07/20] [facility] Medical History (Updated 08/07/20 @ 10:[address] Arnulfo Hearn MD) Cholelithiasis with chronic cholecystitis (Chronic) Ventral incisional hernia without obstruction or gangrene (Acute) 38 weeks gestation of (Acute) Labor, false ([place]) (Acute) 39 weeks gestation of (Acute) Ventral hernia (Acute) Surgical History (Updated 08/07/20 @ 10:16 by Aida Feliciano) No history of previous surgery (Acute) Social History (Updated 08/07/20 @ 10:[address] Arnulfo Hearn MD) Smoking Status: Never smoker alcohol intake: never substance use type: does not use HPI HPI HPI: YISEL BLAKE, is a 29 F who presents to the office today for surgical consultation regarding a symptomatic supraumbilical ventral hernia. The patient will soon be initiating care with Dr. Soumya Delgado. Patient however was seen in the emergency room on August 05, 2020 because of acute on set of severe mid abdominal pain. On clinical exam and then CT scan she was found to have a temporarily incarcerated supraumbilical ventral hernia. She also has gallstones identified but to my review the gallbladder seems to be mostly filled with calcific material. The patient notes some very mild discomfort today. She believes that the vast bulk of the hernia however is currently reduced. She denies any acute bowel problems. She has never had any incisions in the area. She is 5 months . She is just completing her breast-feeding. [facility] Imaging Services [address] [place] [address] Abdomen/Pelvis without Cont MR#: [id number] Name: YISEL BLAKE JRep #:[id number] : 1990F 29 From: Ketan Mcmahon DO PCP:Dr. Soumya Delgado MD Status:REG ER Study:Abdomen/Pelvis without Cont Date of Exam:08/05/20 Exam#[id number] Ordering Dr: Loki Wilkins DO STUDY: CT ABDOMEN AND PELVIS WITHOUT CONTRAST REASON FOR EXAM: Female, 29 years old. ABDOMINAL PAIN UMBILICAL REGION, CHEST PAIN, GIVEN 1 NITRO RADIATION DOSAGE (If Supplied By Facility): CTDIvol = ( 14.35 ) mGy, DLP = ( 699.25 ) mGycm TECHNIQUE: Transaxial images were obtained from the dome of the diaphragm to the symphysis pubis without oral contrast, and without intravenous contrast. Sagittal and coronal images were reconstructed. Individualized dose optimization techniques were used for this CT. COMPARISON: None. FINDINGS: The visualized lung bases are unremarkable. The visualized portions of the heart are within normal limits. Normal liver. Cholelithiasis. No significant dilatation of the extrahepatic biliary system. Normal spleen. Normal pancreas. Normal bilateral adrenal glands. Mild hydronephrosis of the right kidney with right hydroureter. No obstructive stone is noted. Normal left kidney. Normal visualized stomach. Normal small intestine. Normal colon. The appendix is visualized and appears normal. Normal abdominal aorta. Normal inferior vena cava. Normal retroperitoneum. Normal urinary bladder. 4.6 cm fatty ventral hernia. Normal osseous structures. CT/Abdomen/Pelvis without Cont IMPRESSION: Cholelithiasis. Right hydronephrosis and hydroureter. No obstructing stone is noted. Fatty ventral hernia. Electronically Signed: Ketan Mcmahon DO at 22:45 EST Tel [phone], Service support , HPI HPI HPI: YISEL BLAKE, is a 29 F who presents to the office today for Exam Const General: cooperative Nutritional Appearance: obese Orientation: alert, awake HENMT Head: normal to inspection Eyes General: appearance normal, both eyes and all related structures Resp Effort & Inspection: normal respiratory effort Auscultation: clear to auscultation bilaterally Cardio Rate: regular rate Rhythm: regular rhythm GI Palpation: soft, no hepatosplenomegaly Auscultation: normal bowel sounds Other: Just superior to the umbilicus there is a nondescript fibrofatty area. This is actually difficult to appreciate. I am not able to clinically detect the fascial defect. The patient points to this area as well. Musc Cervical Spine: normal cervical lordosis Skin General: no rashes or lesions noted Neuro Cognition: normal cognition Extrem General: no calf tenderness Psych Affect: normal affect Assessment & Plan Problems 1. Ventral incisional hernia without obstruction or gangrene K43.2 2. Calculus of gallbladder with chronic cholecystitis without obstruction K80.10 Plan 29-year-old female. She had a temporarily incarcerated ventral hernia superior to the umbilicus. It seems to be mostly reduced at this time. The patient is having very mild symptoms. There is no signs of infection. I am recommending to her a direct approach to this area with an open incision. Anticipating likely a Ventralex mesh repair. I have discussed possible conversion to laparoscopic approach if indicated. She and her are aware of the technique, benefit, risk, alternatives. Because the area is still uncomfortable we will try to schedule and proceed in a timely fashion. I also discussed with her the CT scan findings of the gallbladder issue. I am not recommending that we combine that at the same setting as her ventral hernia repair is I anticipate utilizing mesh. I am however recommending that she possibly have that done in 3 to 6 months after she recovers. The patient and her suggest that they may not proceed with additional pregnancies. Symptomatic gallbladder disease could complicate that. The appearance of her gallbladder on CT somewhat curious and appears to be filled with stones or one large stone. I have cautioned them against use of homeopathic products forcing the gallbladder to empty. She has had an opportunity to ask and have questions answered. We will schedule procedure at her discretion. Arnulfo Hearn M.D., F.A.C.S. Coding Level of Care Code Off vis,new,level 3 Diagnoses Ventral incisional hernia without obstruction or gangrene K43.2 Calculus of gallbladder with chronic cholecystitis without obstruction K80.10 ??Cholelithiasis location: gallbladder ??Biliary obstruction: without biliary obstruction The patient had been seen in the emergency room as noted above for a transient incarceration of a ventral hernia superior to the umbilicus. She presents now for direct repair with mesh. She is aware of technique, benefit, risk, alternatives. We will proceed as noted. Arnulfo Hearn M.D., F.A.C.S. Procedure Criteria Procedure Type: Elective COVID Risk Discussion: The surgeon/proceduralist and patient have discussed in detail the risk of exposure to and/or potential harm posed by the COVID-19 virus with having a surgery/procedure at this time versus the risk of delaying the surgery/procedure. It is not possible to know either the risk of delaying the surgery or procedure or chance of getting an infection with perfect accuracy, but a joint decision was made between the patient and the surgeon/proceduralist to proceed at this time with the scheduled surgery/procedure as indicated on the consent form.
--- NOTE | 2020-08-12 06:05 | DCINST_ITS ---
Discharge Diet: Light diet - advance as tolerated - if you have questions about your diet instructions, please talk to you doctor. Discharge Activity: May Not Drive - for 1 week or while taking narcotic pain medicine. May shower in (days): 1 Lifting Restrictions: 10 pounds Call your doctor if your incision/area has: Continuous Slow Oozing, Sudden Increased Bleeding, Increased Pain/ Swelling, Increased Redness, Foul Smelling Discharge Call your doctor if you observe: Fever of 101 or Higher Suture Line Care: Avoid Pulling/Pushing, Avoid Pinching/Bending Additional Dressing/Incision Instructions:: Change or remove dressing in 4 days. Leave steri-strips in place for 1 week. Allergies/Adverse Reactions: Allergies No Known Allergies Allergy (Verified 08/12/20 05:38) Medications to take at Discharge Ascorbic Acid [Vitamin C] 1,000 mg PO DAILY 08/10/20 Pnv No.95/Ferrous Fum/Folic AC [ Vitamin Tablet] 1 ea PO DAILY 08/10/20 Primary Care Physician: Soumya Delgado MD [Primary Care Provider] - Test Results: Test results from this visit will be discussed in further detail at your follow- up appointment, if applicable. Please Follow Up With: Arnulfo Hearn MD - [phone] When: Call for appt. may be phone, virtual, or on-site. Approx. 10days
[2020-08-12] MEDS: Lactated Ringers 1,000 ML 100 ML IV ×2 (06:11→08:35)
[2020-08-12 06:14] LABS: Internal QC Validated? YES +Cl - CLEAR BKGD; Pregnancy, Urine Negative Negative
[2020-08-12] MEDS: Cefazolin 2 GM in 0.9% Normal Saline 100 ML IV (07:20)
[2020-08-12] MEDS: Bupivacaine Mpf 0.5% 30 ML VIAL (07:45)
--- NOTE | 2020-08-12 08:16 | OP.PCM_ITS ---
Problem List (1) Ventral incisional hernia without obstruction or gangrene Status: Acute Report of Operation Date of Procedure: 08/12/20 Pre-Operative Diagnosis: Symptomatic supraumbilical ventral hernia Post-Operative Diagnosis: Incarcerated symptomatic supraumbilical ventral hernia Surgery/Procedure Performed:: Incarcerated ventral herniorrhaphy with placement of [address] hernia patch. Lot number [id number]. Reference #[id number]. Expiry date 03/13/2022 Description of Surgical Findings:: Timeout and informed consent was obtained. 29-year-old female was taken to the operating placed supine on the table the abdomen was sterilely prepped and draped she received 2 g of Ancef. Throughout the procedure 30 cc of 0.5% Marcaine was used as a local anesthetic. Skin the site was preanesthetized. A transverse incision was created. Sharp dissection carried down through the subtenons tissue. A hernia sac with preperitoneal fatty tissue was encountered. This was not reducible. It was dissected free to the rectus fascia. Using electrocautery I opened the sac and then transected the sac. That specimen was sent for analysis. I then dissected free the peritoneum from the recto rectus space. This I performed circumferentially. Having achieved that I placed a [address] mesh. It open very nicely. I secured the tails with interrupted 0 Nurolon. I then approximated the fascial defect L to be approximately 3 to 4 cm diameter with simple sutures of 0 Nurolon. I did capture the mesh with several sutures to help hold it in place. Having achieved that I had an excellent closure. The skin edges were approximated a running subcuticular 4-0 Monocryl. Steri- Strips Telfa OpSite dressings applied. Sponge and instrument and needle counts were reported to the surgeon to be correct. Specimens hernia sac and contents. Drains none. Blood loss minimal. The patient was taken to the recovery area in satisfactory edition without apparent complication Arnulfo Hearn M.D., F.A.C.S. Type of Anesthesia:: General Anesthesiologist: Lex Leon
[2020-08-12] MEDS: HYDROcodone Bitartrate/Apap 5/325 Tablet PO (09:57)
== END 2020-08-12 11:30 | disposition home or self-care (01) ==
LOC: SDC 05:32 → AC 05:32
PROVIDERS: Anesthesiology; PCP Family Medicine; Referring Provider Surgery; Visit Provider Surgery
PROC: (CPT 49561; principal; 2020-08-12 07:15)
DX: K43.0 Incisional hernia with obstruction, without gangrene (principal); K80.10 Calculus of gallbladder with chronic cholecystitis without obstruction; Z20.828 Contact with and (suspected) exposure to other viral communicable diseases; E66.9 Obesity, unspecified
CPT/HCPCS: 49561; 49568; 81025; 87426; 88302; C9803; J7120; C1781; J2405

== ENCOUNTER 2021-02-09 07:32 | Day surgery (SDC) | payer SELFPAY ==
[2021-01-13 06:05] VITALS: BMI 32.8
--- NOTE | 2021-02-08 09:19 | EKG12_ITS ---
Test Reason : PRE-OP Blood Pressure : / mmHG Vent. Rate : 060 BPM Atrial Rate : 060 BPM P-R Int : 160 ms QRS Dur : 078 ms QT Int : 420 ms P-R-T Axes : 020 035 006 degrees QTc Int : 420 ms Sinus rhythm with marked sinus arrhythmia Nonspecific T wave abnormality Abnormal ECG Confirmed by JACK WILSON, SHELLIE ([id number]), food editor LUKE MORENO ([id number]) on 02/09/2021 10:34:26 AM Referred By: Arnulfo Hearn Confirmed By:SHELLIE SANTIAGO MD
[2021-02-09] VITALS (9 sets, daily range): BP systolic 107–140; BP diastolic 72–92; PULSE 58–71; RESP 14–16; TEMP 36.1–36.7; O2SAT 97–100; BMI 33.7
[2021-02-09 08:03] LABS: Internal QC Validated? YES +Cl - CLEAR BKGD
[2021-02-09 08:04] LABS: Pregnancy, Urine Negative Negative
[2021-02-09] MEDS: Lactated Ringers 1,000 ML 100 ML IV (08:18)
--- NOTE | 2021-02-09 08:31 | HP.PCM_ITS ---
History and Physical Date of Admission: 02/09/21 Intake Visit Reasons: DISCUSS GALLBLADDER SURGERY Chief Complaint: lap alexandra Physical Metallurgist Required: No Is patient in pain?: No Allergies No Known Allergies Allergy (Verified 01/13/21 14:15) [facility] Medical History 38 weeks gestation of 39 weeks gestation of Cholelithiasis with chronic cholecystitis Labor, false ([place]) Ventral hernia Ventral incisional hernia without obstruction or gangrene Surgical History No history of previous surgery S/P ventral herniorrhaphy Social History Smoking Status: Never smoker alcohol intake: never substance use type: does not use HPI HPI HPI: YISEL BLAKE, is a 30 F who presents to the office today for surgical consultation regarding chronic cholecystitis cholelithiasis. I assisted her with a epigastric ventral incisional hernia repair with a Ventralex mesh on August 12, 2020. She has done very well with that. That was quite symptomatic at the time from her hernia. I did not feel comfortable at that same setting performing her cholecystectomy. She is performing well status post her ventral hernia repair. She is very pleased with her progress. She is very much interested in pursuing her cholecystectomy. ROS General General: No weight change, appetite, fatigue, colon cancer, breast cancer or weakness HEENT HEENT: No difficulty swallowing, eye injury, eye surgery, swollen glands or hoarseness Endo Endocrine: No thyroid disease, diabetes mellitus, thyroid cancer, Hair loss, heat intolerance or cold intolerance Skin Skin: No rash or changing moles Breast Breast: No left breast lump, right breast lump, nipple discharge, breast pain, abnormal mammogram, abnormal US or breast enlargement Musc Musculoskeletal: No back problems, arthritis, rheumatoid arthritis, gout or joint pain Cardio Cardiovascular: No murmur, pacemaker, heart disease, atrial fibrillation, high blood pressure, heart attack, heart stent, palpitations, shortness of breat with exertion or chest pain Psych Psychiatric: No depression, anxiety or hearing voices Resp Respiratory: No shortness of breath, No sleep apnea, No cough, No COPD, No asthma, No emphysema and No wheezing Gastro Gastrointestinal: No abdominal pain, No nausea or vomiting, No diarrhea, No constipation, No blood in stool, No acid reflux, No hemorrhoids, No ulcers, Yes gallbladder problem and No black,tarry stools [place] Hematologic: No blood thinners, No blood disorders, No bleeding, No anemia and No blood clots Neuro Neurologic: No system reviewed and no additional complaints, except as documented, No as per HPI, No abnormal gait, No abnormal hearing, No abnormal movements, No abnormal speech, No behavioral changes, No burning sensations, No confusion, No convulsions, No disequilibrium, No dizziness, No localized weakness, No frequent falls, No headache(s), No lack of coordination, No loss of vision, No memory loss, No numbness, No other visual disturbances, No radicular pain, No restless legs, No sensory deficit, No syncope, No tingling, No tremor(s), No weakness and No other Exam Const General: cooperative, healthy appearing, comfortable and no acute distress HENMT Head: normal to inspection Eyes General: appearance normal, both eyes and all related structures Neck Neck: normal visual inspection Resp Effort & Inspection: normal respiratory effort Auscultation: clear to auscultation bilaterally Cardio Rate: regular rate Rhythm: regular rhythm GI Palpation: soft and no hepatosplenomegaly Other: Well-healing transverse supraumbilical hernia incision Musc Cervical Spine: normal cervical lordosis Skin General: no rashes or lesions noted Neuro General: patient alert and patient awake Extrem General: no calf tenderness bilaterally Psych Thought Process: normal COVID (Procedure Consent) Procedure Criteria Procedure Criteria: Yes Elective The surgeon/proceduralist and patient have discussed in detail the risk of exposure to and/or potential harm posed by the COVID-19 virus with having a surgery/procedure at this time versus the risk of delaying the surgery/procedure. It is not possible to know either the risk of delaying the surgery or procedure or chance of getting an infection with perfect accuracy, but a joint decision was made between the patient and the surgeon/proceduralist to proceed at this time with the scheduled surgery/procedure as indicated on the consent form. Assessment and Plan Assessment and Plan (1) Cholelithiasis with chronic cholecystitis: Status: Chronic Qualifiers: Cholelithiasis location: gallbladder Biliary obstruction: without biliary obstruction Qualified Code(s): K80.10 - Calculus of gallbladder with chronic cholecystitis without obstruction Plan - Dr. Arnulfo Hearn MD: I am recommending to the patient a laparoscopic cholecystectomy with selective cholangiography and I have discussed her technique, benefit, risk, alternatives. She has had an opportunity to ask and have questions answered. She is very much interested in scheduling and proceeding. I appreciate the ongoing opportunity of assisting with her surgical care. Copy: Dr. Soumya Hearn M.D., F.A.C.S. Coding Level of Care Code Off vis,est,level 2 Diagnoses Cholelithiasis with chronic cholecystitis K80.10 Cholelithiasis location: gallbladder Biliary obstruction: without biliary obstruction I have re-examined the patient. There are no clinical changes since date of exam.
[2021-02-09] MEDS: Cefazolin 2 GM in 0.9% Normal Saline 100 ML IV (08:59)
--- NOTE | 2021-02-09 09:09 | EX.PCM.DISCH ---
Discharge Instructions Procedure Gallbladder Diet Discharge Diet: Light diet - advance as tolerated Activity Discharge Activity: May Not Drive (for 2-3 days or while taking narcotic pain medications.) and - (Do not drive, work heavy equipment or sign legal documents for 24 hours.) May shower in (days): 1 (with the bandage in place.) Additional Activity Instructions:: Pain medication may cause nausea. You should typically eat light foods as you take your pain medications. Pain medication may also cause constipation. If this is a problem for you, please discuss with your doctor. Dressing / Incision Call your doctor if your incision/area has: Continuous Slow Oozing, Sudden Increased Bleeding, Increased Pain/ Swelling, Increased Redness and Foul Smelling Discharge Call your doctor if you observe: Fever of 101 or Higher Suture Line Care: Avoid Pulling/Pushing and Avoid Pinching/Bending Additional Dressing/Incision Instructions:: Leave operative bandaids on for 2 days. When you remove dressing, leave Steri-Strips on until your follow-up appointment, or until the Steri-Strips fall off on their own. Follow Up Care Please Follow Up With: Arnulfo Hearn MD When: Call [phone] to schedule an appointment to be seen 7 days after your surgery. Test Results: Test results from this visit will be discussed in further detail at your follow-up appointment, if applicable. Discharge Plan Admission Attending Provider: Arnulfo Hearn Primary Care Provider: Soumya Delgado Discharge Orders/Prescriptions Prescriptions: No Action NK RF: 0
--- NOTE | 2021-02-09 09:15 | RAD_ITS ---
STUDY: INTRADOP CHOLANGIOGRAM. REASON FOR EXAM: Female, 30 years old. Laparoscopic cholecystectomy. FLUOROSCOPY TIME (if supplied): ( 12 seconds ) minutes/seconds. A cine run of 22 images were submitted. TECHNIQUE: An intraoperative quadrant was performed by the surgeon. Imaging was submitted. COMPARISON: None. FINDINGS: The visualized intrahepatic biliary ducts are unremarkable. The common bile duct is not dilated. No intraluminal filling defect is seen. There is free flow of contrast into the duodenum. RAD/Cholangiogram/ O R,Initial IMPRESSION: Unremarkable intraoperative cholangiogram. Electronically Signed: Yong Bullard MD at 9:31 EDT , Service support ,
--- NOTE | 2021-02-09 09:25 | GALL_PTH ---
PATIENT: YISEL BLAKE [place]: [facility] [place] U[place][id number] AGE/SX: 30/F ROOM: RE02/09/[address]: Dr. Arnulfo Hearn MD : 1990 BED: DIS: 02/09/2021 SPEC #: [id number] RECD: 02/09/21 11:06 STATUS: SEVERIANO ASCENCIO #: [id number] ELIJAH: 02/09/21 09:[address]: Arnulfo Hearn DEPT: SURGICAL PATHOLOGY RECD BY: Beatriz Lizama ENTERED: 02/09/21 11:40 SP TYPE: CONSUELO BE DR: Dr. Soumya Delgado MD Tissues: Gallbladder, NOS Procedures: Surgery Specimen Level II Surgery Specimen Level III HEADER OPERATION: Laparoscopic cholecystectomy with IOC, umbilical hernia repair PRE-OP DIAGNOSIS: Cholelithiasis with chronic cholecystitis K80.10 TISSUE SUBMITTED: A ? Gallbladder, B ? Hernia sac MICROSCOPIC DIAGNOSIS A. Gallbladder, cholecystectomy: Chronic cholecystitis and cholelithiasis. B. Hernia sac: Pieces of fibroadipose and fibroconnective tissue, consistent with hernia sac. YIN:maximiliano 02/10/2021 MICROSCOPIC DESCRIPTION Slides are reviewed. GROSS DESCRIPTION A - Received is one container labeled with the patient's name and designated gallbladder. The specimen consists of a gallbladder measuring 7.5 cm in length and up to 3 cm in diameter. The external surface is pink-marrero, smooth and glistening for the most part. Focally it is granular, hemorrhagic and contains cautery artifact. The gallbladder contains hemorrhagic mucoid bile and one ovoid, greenish-yellow stone impacted in the middle portion of the gallbladder measuring 3 x 2.5 x 2 cm. The mucosa is bile-stained and without any mass lesions. The gallbladder wall measures up to 0.2 cm in thickness. Manager Assessment sections from the gallbladder and the cystic duct are submitted in one cassette. B - Received in fixative is one container labeled with the patient's name and designated hernia sac. The specimen consists of multiple pieces of soft tissue mixed with adipose tissue that in aggregate measure 3 x 2.5 x 0.3 cm. The specimen is totally submitted in one cassette. / YIN:maximiliano 02/09/21 TC:3 CPT: 06074, 95343
--- NOTE | 2021-02-09 10:19 | PCM.OPRPT ---
Problems Associated Problem List Diagnoses (1) Cholelithiasis with chronic cholecystitis: (2) Umbilical hernia without obstruction or gangrene: Report of Operation Date of Procedure: 02/09/21 Pre-Operative Diagnosis: Chronic cholecystitis cholelithiasis Post-Operative Diagnosis: Chronic cholecystitis cholelithiasis umbilical hernia Surgery/Procedure Performed:: Laparoscopic cholecystectomy with cholangiograms. Umbilical herniorrhaphy Description of Surgical Findings:: 30-year-old female with intermittent episodes of epigastric right upper quadrant pain. Gallstones noted on imaging. Timeout and informed consent was obtained. Ancef 2 g given intravenously. The operative prepped draped. 0.5% Marcaine was used as a local anesthetic. Throughout the procedure a total of 30 cc was used. Skin sites were preanesthetized. A vertical infraumbilical incision was created holding sutures of 0 Vicryl placed varies needle inserted saline drop test performed the abdomen was insufflated with CO2 to a pressure of 10 mmHg pressure. 10 mm trocar inserted. There is evidence of adhesions in the mid epigastric area due to the previous ventral incisional herniorrhaphy. No bowel involvement. [address] in the epigastric right upper quadrant lateral right upper quadrant. The gallbladder was distracted blunt dissection was instituted at the infundibulum until clearly the cystic duct and cystic artery were identified. Hemoclip was placed on the cystic duct incision in the cystic duct angiogram catheter inserted through a 14-gauge Angiocath and fluoroscopically controlled cholangiograms were obtained demonstrating normal ductal anatomy and free flow of the small bowel. The cholangiogram catheter was removed 2 Hem-o-tani clips were placed on the cystic duct stump prior to transecting it. The cystic artery was clipped with a couple Hem-o-tani clips proximally prior to transecting it. The gallbladder was tediously dissected free from the liver bed. The patient did seem to bleed relatively easily so cautery was used as needed. At the completion fibrillar was placed in the liver bed as well. Hemostasis was intact. The gallbladder was placed in a retrieval bag. The right upper quadrant was irrigated and aspirated free of excess fluid. The liver bed again inspected noted and nicely hemostatic. The abdomen was allowed to deflate through an antiviral valve. The gallbladder is exited the umbilicus. Enlargement of the fascia was required. So doing it became evident that the patient had an umbilical hernia. There was fibrofatty tissue involved. So this was trimmed free and the contents of the umbilical hernia removed. The fascia was then approximated with simple sutures of 0 Nurolon so as to approximate the defect and the umbilical hernia simultaneously. The skin edges approximated opted for Monocryl subdermal stitches. Steri-Strips Telfa OpSite dressings applied. Sponge and instrument and needle counts were reported to certainly be correct. Specimen gallbladder and umbilical hernia. Drains none. Blood loss minimal. Arnulfo Hearn M.D., F.A.C.S. Surgeon: Arnulfo Hearn Type of Anesthesia: General Anesthesiologist: Lex Freeman
[2021-02-09] MEDS: Bupivacaine Mpf 0.5% 30 ML VIAL (10:26)
[2021-02-09] MEDS: Ketorolac 30 MG/ML Syringe IV (12:30)
== END 2021-02-09 13:26 | disposition home or self-care (01) ==
LOC: SDC 07:36 → AC 07:38
PROVIDERS: Anesthesiology; PCP Family Medicine; Referring Provider Surgery; Visit Provider Surgery
PROC: (CPT 47610; principal; 2021-02-09 09:05)
DX: K80.10 Calculus of gallbladder with chronic cholecystitis without obstruction (principal); K42.9 Umbilical hernia without obstruction or gangrene
CPT/HCPCS: 00830; 47563; 49585; 74300; 76000; 81025; 87426; 88302; 88304; 93005; C9803; J7120; J2405

== ENCOUNTER → 2024-03-08 | Outpatient (CLI) | payer SELFPAY ==
--- NOTE | 2024-03-08 08:04 | ECHOD_ITS ---
Reason For Study: Palpitations Procedure This was a 2D Doppler, Color Flow transthoracic echocardiogram. Exam performed in department. Left Ventricle Normal size and thickness. The left ventricular ejection fraction is 65 %. No evidence for diastolic dysfunction. Right Ventricle Normal right ventricle. Atria The left and right atria are normal. Mitral Valve Trivial mitral valve insufficiency. Tricuspid Valve Trivial tricuspid valve insufficiency. Normal pulmonary artery pressure. Aortic Valve Trisinus/trileaflet aortic valve. Pulmonic Valve The pulmonic valve is not well visualized. Trivial pulmonic valve insufficiency. Great Vessels Normal sized aortic root. Pericardium/Pleural No pericardial effusion. MMode/2D Measurements & Calculations LVIDd: 4.7 cm IVSd: 1.0 cm Ao root diam: 2.5 cm LVIDs: 2.8 cm LVPWd: 0.98 cm LA dimension: 3.7 cm RVDd: 4.2 cm FS: 39.1 % LAV(MOD-bp): 48.7 ml LVAd ap4: 25.9 cm2 SV(MOD-sp4): 51.4 ml LAV(MOD-bp) Indexed: 24.2 ml/m2 LVLd ap4: 6.8 cm LAV(MOD-sp2): 40.2 ml EDV(MOD-sp4): 79.9 ml LAV(MOD-sp4): 52.2 ml EDV(sp4-el): 83.6 ml LVAs ap4: 13.6 cm2 LVLs ap4: 5.5 cm ESV(MOD-sp4): 28.4 ml ESV(sp4-el): 28.8 ml EF(MOD-sp4): 64.4 % EF(sp4-el): 65.6 % SV(sp4-el): 54.8 ml LA A4 area: 18.6 cm2 RA A4 area: 14.9 cm2 TAPSE: 1.9 cm Time Measurements MV dec time: 0.21 sec Doppler Measurements & Calculations MV E max adarsh: 114.2 cm/sec Lat Peak E' Adarsh: 15.9 cm/sec Med Peak E' Adarsh: 13.9 cm/sec MV A max adarsh: 69.3 cm/sec E/E' lat: 7.2 E/E' med: 8.2 MV E/A: 1.6 MV V2 max: 137.7 cm/sec MV P1/2t max adarsh: 137.7 cm/sec Ao V2 max: 135.7 cm/sec MV max P.6 mmHg MV P1/2t: 74.9 msec Ao max P.4 mmHg MV V2 mean: 65.6 cm/sec MV dec slope: 538.3 cm/sec2 Ao V2 mean: 93.6 cm/sec MV mean P.2 mmHg Ao mean P.1 mmHg MV V2 VTI: 32.5 cm MVA(P1/2t): 2.9 cm2 Ao V2 VTI: 29.8 cm AV (velocity ratio): 0.87 LV V1 max: 114.3 cm/sec PA V2 max: 89.3 cm/sec TR max adarsh: 254.8 cm/sec LV V1 max P.2 mmHg PA max PG (full): -0.02 mmHg TR max P.0 mmHg LV V1 mean P.1 mmHg PA V2 mean: 61.8 cm/sec LV V1 mean: 83.8 cm/sec PA mean PG (full): 0.12 mmHg LV V1 VTI: 25.9 cm ECHO/Echo Complete Interpretation Summary The left ventricular ejection fraction is 65 %. Ordering Physician: Lisa Garcia Referring Physician: Lisa Garcia Performed By: Nick Kwon RCS
== END | disposition home or self-care (01) ==
PROVIDERS: PCP Family Medicine; Referring Provider Nurse Practitioner Family; Visit Provider Nurse Practitioner Family
DX: R00.2 Palpitations (principal); Z86.79 Personal history of other diseases of the circulatory system
CPT/HCPCS: 93306

== ENCOUNTER → 2024-03-25 | Outpatient (CLI) | payer SELFPAY ==
[2024-03-25 12:15] LABS: Hematocrit 39.3 % (37-47); Hemoglobin 13.2 g/dL (12.0-15.0); Mean Corp Hgb Conc 33.6 g/dL (32-36); Mean Corpuscular Hgb 29.8 pg (27.0-32.0); Mean Corpuscular Volume 88.7 fL (81-99); Mean Platelet Vol. 9.7 fl (6.2-12.0); Platelet Count 289 K/mm3 (150-450); RBC Distribution Width CV 12.6 % (11.6-14.6); RBC Distribution Width SD 40.8 fl (35.1-43.9); Red Blood Count 4.43 M/mm3 (4.2-5.4); White Blood Count 8.1 K/mm3 (4.4-11.0)
[2024-03-25 12:51] LABS: AST(SGOT) 10 U/L (15-37); Alanine Aminotransfer ALT/SGPT 12 U/L (13-56); Albumin, Serum 3.6 g/dL (3.2-5.0); Alkaline Phosphatase 72 U/L (45-117); Anion Gap 9 (5-15); BUN 12 mg/dL (7-18); BUN/Creat Ratio 15.6 RATIO (10-20); Chloride 104 mmol/L (98-107); Creatinine, Serum 0.77 mg/dL (0.55-1.02); EST Glomerular Filtration Rate 90 mL/min (>60); Est Glom Filt Rate - Afr Amer 109 mL/min (>60); Globulin 3.7 g/dL (2.2-4.2); Glucose 123 mg/dL (74-106); Potassium 3.8 mmol/L (3.5-5.1); Protein, Total 7.3 g/dL (6.4-8.2); Sodium Level 138 mmol/L (136-145); T4 Total, Thyroxin 9.7 ug/dL (4.8-13.9)
== END | disposition home or self-care (01) ==
PROVIDERS: PCP Family Medicine; Referring Provider Internal Medicine Cardiovascular Disease; Visit Provider Internal Medicine Cardiovascular Disease
DX: R00.2 Palpitations (principal)
CPT/HCPCS: 36415; 80053; 84436; 84443; 85027

== ENCOUNTER → 2024-04-05 | Outpatient (CLI) | payer SELFPAY | END | disposition home or self-care (01) | PROVIDERS: PCP Family Medicine; Referring Provider Internal Medicine Cardiovascular Disease; Visit Provider Internal Medicine Cardiovascular Disease | DX: R00.2 Palpitations (principal) | CPT/HCPCS: 93225; 93226 ==